=== PATIENT | female | born 1980 | race American Indian/Alaskan Native ===

== ENCOUNTER → 2024-10-22 | Outpatient (CLI) | payer BC, SELFPAY ==
--- NOTE | 2024-10-22 11:25 | XR_ITS ---
Examination: Hand, right 3 views Technique: Hand AP, oblique, lateral 3 views Date and time of exam: October 22, 2024 1219 hours INDICATIONS: Trigger finger right first digit 6 months FINDINGS: Mild osteoarthritis first metacarpophalangeal joint, interphalangeal joint first digit Mild osteoarthritis distal interphalangeal joints second through fifth digits No erosive arthritis. No fracture IMPRESSION: Mild osteoarthritis
== END | disposition home or self-care (01) ==
LOC: CDIM 11:12
PROVIDERS: PCP Nurse Practitioner Family; Referring Provider Nurse Practitioner Family; Visit Provider Nurse Practitioner Family
DX: M19.041 Primary osteoarthritis, right hand (principal)
CPT/HCPCS: 73130